=== PATIENT | male | born 1965 | race Caucasian/White ===

== ENCOUNTER 2023-08-06 09:15 | Outpatient (AMB) | payer OTHER, SELFPAY ==
--- NOTE | 2023-08-06 09:19 | A.OFFVIS_ITS ---
Vital Signs 08/06/23 09:21 Height 5 ft 11 in Weight 181 lb 2 oz BMI 25.3 BP 120/74 Blood Pressure Location Lt brachial Position Sitting Pulse 60 Pulse Source Pulse Oximeter Pulse Oximetry (%) 98 Oxygen Delivery Method Room Air Intake Visit Reasons: Dyspnea Allergies No Known Allergies Allergy (Verified 08/06/23 09:24) HPI HPI Dyspnea: Details: Ede is pleasant 58 year old male, never smoker, with underlying asthma. He was referred by PCP for pulmonary evaluation for dyspnea on moderate exertion, specifically stairs. He reports noticeable dyspnea which became more noticeable last year. He denies any cough, wheezing or chest tigthtness. He reports asthma since childhood, never requiring intubations. In the past he has been on multiple inhalers, usually requiring seasonally, with spring and allergies. He is not currently on any respiratory medications. He does take flonase and sanjuana atidine with moderate effect. Prior PFT from 2020 reportedly unremarkable. Prior CXR from 12/04 unremarkable. Of note, he did have a cardiology work up with echo, stress test and EKG holter which was reportedly unremarkable. He denies any occupational exposures. He denies any pertinent family history. [facility] Social History (Updated 08/06/23 @ 09:27 by Melody Rowland [facility]) Patient Tobacco Use Status: Never used Tobacco Review of Systems Const Denies chills, Denies excessive sweating, Denies fever(s), Denies headache(s) and Denies night sweats Eyes Denies dry eyes, Denies irritation and Denies itchy eyes ENT Reports Normal hearing present, Denies headache(s), Denies nasal congestion, Denies nasal discharge and Denies sore throat Card Denies chest pain, Denies chest pain at rest, Denies chest pain with activity, Denies claudication, Denies leg edema, Denies orthopnea and Denies paroxysmal nocturnal dyspnea Resp Denies chest congestion, Denies cough, Denies excessive phlegm production, Denies pain on inspiration, Denies pain with cough, Denies stridor and Denies wheezing Musc Denies myalgias Neuro Reports Normal hearing present and Denies headache(s) Endo Denies excessive sweating Jose De Jesus/Lymph Denies lymphadenopathy Aller/Immun Denies itchy eyes, Denies seasonal rhinorrhea and Denies wheezing Physical Exam Vital Signs: Last Vital Signs Pulse 60 08/06/23 09:21 BP 120/74 08/06/23 09:21 Pulse Ox 98 08/06/23 09:21 Oxygen Delivery Method Room Air 08/06/23 09:21 BMI result Body Mass Index 25.3 Const General: cooperative, healthy appearing, comfortable, no acute distress, well developed and alert Orientation/consciousness: patient oriented x3 Limitations: no limitations HEENT Head: Yes normal to inspection, Yes normocephalic and Yes atraumatic Ears: hearing grossly normal bilaterally and external ears normal Eyes General: appearance normal, both eyes and all related structures Eyelids: Yes eyelids normal Sclerae: sclerae normal EOM: EOMs intact bilaterally Neck Neck: Yes normal visual inspection and Yes no lymphadenopathy Lymphatic: no lymphadenopathy noted Chest Chest palpation & inspection: normal inspection of the chest Resp Effort & Inspection: normal respiratory effort, able to speak in complete sentences, no audible wheezes, no cough, no stridor, not tachypneic, no tripod positioning and no use of accessory muscles Auscultation: clear to auscultation bilaterally Cardio Jugular venous distension: no JVD Rate: regular rate Rhythm: regular rhythm Skin Other: warm, dry General skin exam: no rashes or lesions noted Neuro General: patient oriented x3 Cranial nerves: Yes Normal hearing present Cognition (Neuro): normal cognition Gait exam (Neuro): Normal gait present Extrem General: Yes normal to inspection, Yes capillary refill normal, Yes no clubbing, cyanosis or edema and Yes no pedal edema Psych Appearance: grossly normal and well kempt Speech and movement: Normal speech and movement present and Clear speech present Affect: normal affect Attitude: cooperative Thought process: Normal thought process present Thought content: Normal thought content present Insight: Good insight present (Psych) Judgement: Good judgement present (Psych) Assessment & Plan Assessment & Plan (1) Asthma: Code(s): J45.909 - Unspecified asthma, uncomplicated Category: Medical (2) Dyspnea on exertion: Code(s): R06.09 - Other forms of dyspnea Category: Medical (3) Environmental allergies: Code(s): Z91.09 - Other allergy status, other than to drugs and biological substances Category: Medical Plan Ede symptoms are likely related to underlying asthma with allergic component. Will send for PFT to thoroughly evaluate. Patient reports prior allergy testing, with multiple environmental allergies. Will trial ICS, as patient reports tremors with prior LABA use. Advised to continue current allergy medication regimen. All questions were answered and patient is in agreement of plan. Will follow up to review response to inhaler and results of PFT. Orders: Orders PFT pulmonary function test Today J45.909 - Unspecified asthma, uncomplicated Medications: New fluticasone furoate 100 mcg/actuation (Arnuity Ellipta) 1 inh inhalation DAILY 30 ea 3RF Coding Level of Care Code New Pt Level 4 (97999) Diagnoses Asthma J45.909 Dyspnea on exertion R06.09 Environmental allergies Z91.09
[2023-08-06 09:21] VITALS: BP 120/74; PULSE 60; O2SAT 98; BMI 25.3
== END 2023-08-06 10:01 | disposition home or self-care (01) ==
PROVIDERS: PCP Internal Medicine; Referring Provider Internal Medicine; Visit Provider Nurse Practitioner Family
DX: J45.909 Unspecified asthma, uncomplicated (principal); R06.09 Other forms of dyspnea; Z91.09 Other allergy status, other than to drugs and biological substances
CPT/HCPCS: 99204

== ENCOUNTER → 2023-08-06 09:15 | Outpatient (BNVA) | payer OTHER, SELFPAY | PROVIDERS: Visit Provider Nurse Practitioner Family ==

== ENCOUNTER 2024-01-27 09:08 | Outpatient (AMB) | payer OTHER, SELFPAY ==
--- NOTE | 2024-01-27 09:12 | A.OFFVIS_ITS ---
Vital Signs 01/27/24 09:13 Height 5 ft 11 in Weight 189 lb 8 oz BMI 26.4 BP 138/86 Blood Pressure Location Lt brachial Position Sitting Pulse 48 L Pulse Source Pulse Oximeter Pulse Oximetry (%) 99 Oxygen Delivery Method Room Air Intake Visit Reasons: Asthma/PFT Follow Up Allergies No Known Allergies Allergy (Verified 01/27/24 09:17) HPI HPI Asthma/PFT Follow Up: Details: Ede is pleasant 59 year old male, never smoker, with underlying asthma since childhood. At the last visit, he reported more noticeable dyspnea over the last year. An ICS inhaler was sent in however patient unable to obtain due to insurance denial then issues at the pharmacy. At this time, he reports symptoms are fairly controlled using albuterol PRN and requesting a refill. He was also sent for PFT however this has been rescheduled on 3 occasions, awaiting PFT to be scheduled. He prefers this be performed at [facility]. He denies any visits to urgent care or hospitalizations since the last visit. [facility] Social History (Reviewed 01/27/24 @ 09:16 by Melody Rowland [facility]) Patient Tobacco Use Status: Never used Tobacco Review of Systems Const Denies chills, Denies excessive sweating, Denies fever(s), Denies headache(s) and Denies night sweats Eyes Denies dry eyes, Denies irritation and Denies itchy eyes ENT Reports Normal hearing present, Denies headache(s), Denies nasal congestion, Denies nasal discharge and Denies sore throat Card Denies chest pain, Denies chest pain at rest, Denies chest pain with activity, Denies claudication, Denies leg edema, Denies orthopnea and Denies paroxysmal nocturnal dyspnea Resp Denies chest congestion, Denies cough, Denies excessive phlegm production, Denies pain on inspiration, Denies pain with cough, Denies stridor and Denies wheezing Musc Denies myalgias Neuro Reports Normal hearing present and Denies headache(s) Endo Denies excessive sweating Jose De Jesus/Lymph Denies lymphadenopathy Aller/Immun Denies itchy eyes, Denies seasonal rhinorrhea and Denies wheezing Physical Exam Vital Signs: Last Vital Signs Pulse 48 L 01/27/24 09:13 BP 138/86 01/27/24 09:13 Pulse Ox 99 01/27/24 09:13 Oxygen Delivery Method Room Air 01/27/24 09:13 BMI result Body Mass Index 26.4 Const General: cooperative, healthy appearing, comfortable, no acute distress, well developed and alert Orientation/consciousness: patient oriented x3 Limitations: no limitations HEENT Head: Yes normal to inspection, Yes normocephalic and Yes atraumatic Ears: hearing grossly normal bilaterally and external ears normal Eyes General: appearance normal, both eyes and all related structures Eyelids: Yes eyelids normal Sclerae: sclerae normal EOM: EOMs intact bilaterally Neck Neck: Yes normal visual inspection and Yes no lymphadenopathy Lymphatic: no lymphadenopathy noted Chest Chest palpation & inspection: normal inspection of the chest Resp Effort & Inspection: normal respiratory effort, able to speak in complete sentences, no audible wheezes, no cough, no stridor, not tachypneic, no tripod positioning and no use of accessory muscles Auscultation: clear to auscultation bilaterally Cardio Jugular venous distension: no JVD Rate: regular rate Rhythm: regular rhythm Skin Other: warm, dry General skin exam: no rashes or lesions noted Neuro General: patient oriented x3 Cranial nerves: Yes Normal hearing present Cognition (Neuro): normal cognition Gait exam (Neuro): Normal gait present Extrem General: Yes normal to inspection, Yes capillary refill normal, Yes no clubbing, cyanosis or edema and Yes no pedal edema Psych Appearance: grossly normal and well kempt Speech and movement: Normal speech and movement present and Clear speech present Affect: normal affect Attitude: cooperative Thought process: Normal thought process present Thought content: Normal thought content present Insight: Good insight present (Psych) Judgement: Good judgement present (Psych) Assessment & Plan Assessment & Plan (1) Asthma: Code(s): J45.909 - Unspecified asthma, uncomplicated Category: Medical (2) Dyspnea on exertion: Code(s): R06.09 - Other forms of dyspnea Category: Medical (3) Environmental allergies: Code(s): Z91.09 - Other allergy status, other than to drugs and biological substances Category: Medical Plan At this time, Ede would like to hold off on a daily inhaler and prefers to use albuterol PRN. He is aware if he is using frequently to call office to trial an ICS. He is awaiting PFT to be scheduled, he prefers this order be sent to [facility], will send. All questions were answered and patient is in agreement of plan. Will follow up to review results of PFT via telephone unless symptomatic and will be seen in office. Orders: Orders PFT pulmonary function test Today J45.909 - Unspecified asthma, uncomplicated Medications: New albuterol sulfate 90 mcg/actuation 2 puffs inhalation Q4-6H PRN 1 ea 3RF shortness of breath or wheezing Coding Level of Care Code Est Pt Level 3 (74161) Diagnoses Asthma J45.909 Dyspnea on exertion R06.09 Environmental allergies Z91.09
[2024-01-27 09:13] VITALS: BP 138/86; PULSE 48; O2SAT 99; BMI 26.4
== END 2024-01-27 09:34 | disposition home or self-care (01) ==
PROVIDERS: PCP Internal Medicine; Visit Provider Nurse Practitioner Family
DX: J45.909 Unspecified asthma, uncomplicated (principal); R06.09 Other forms of dyspnea; Z91.09 Other allergy status, other than to drugs and biological substances
CPT/HCPCS: 99213

== ENCOUNTER → 2024-01-27 09:08 | Outpatient (BNVA) | payer OTHER, SELFPAY | PROVIDERS: PCP Internal Medicine; Visit Provider Nurse Practitioner Family ==

== ENCOUNTER 2024-03-17 12:02 | Outpatient (AMB) | payer SELFPAY ==
--- NOTE | 2024-03-17 12:01 | MHC.OFFVIS ---
Intake Visit Reasons: asthma Allergies No Known Allergies Allergy (Verified 01/27/24 09:17) HPI HPI asthma: Details: Ede is pleasant 59 year old male, never smoker, with underlying asthma since childhood. At the last visit, he reported more noticeable dyspnea over the last year. An ICS inhaler was sent in however patient unable to obtain due to insurance denial then issues at the pharmacy. At this time, he reports symptoms are fairly controlled using albuterol PRN and requesting a refill. He denies any visits to urgent care or hospitalizations since the last visit. Today's visit was conducted via telephone to review PFT results. [facility] Social History Patient Tobacco Use Status: Never used Tobacco Review of Systems Const All systems reviewed & are unremarkable except as noted in HPI and below Physical Exam Const General: cooperative and no acute distress Orientation/consciousness: patient oriented x3 Resp Effort & Inspection: normal respiratory effort, able to speak in complete sentences and no audible wheezes Neuro General: patient oriented x3 Psych Mental Status: mental status grossly normal Speech and movement: Clear speech present Attitude: cooperative Thought process: Normal thought process present Thought content: Normal thought content present Insight: Good insight present (Psych) Judgement: Good judgement present (Psych) Telehealth Telehealth Telehealth Platform: Telephone Location of provider rendering services: practice address Location of patient: address on file Patient Identification confirmed using: Name, : Yes Telehealth method: voice only Patient verbally consented to treatment: Yes Patient verbally consented to billing insurance company: Yes Patient informed of any privacy concerns related to visit: Yes Assessment & Plan Assessment & Plan (1) Asthma: Code(s): J45.909 - Unspecified asthma, uncomplicated Category: Medical Plan Reviewed PFT which revealed mild obstructive defect with no significant change with bronchodilation consistent with asthma COPD overlap. At this time, Ede would like to hold off on a daily inhaler and prefers to use albuterol PRN. He is aware if he is using frequently to call office to trial an ICS. All questions were answered and patient is in agreement of plan. Will follow up in 6-9 months or sooner if needed. Scribe Plan - Not visible on output: I spent 10 minutes speaking with the patient on the phone plus an additional 10 minutes reviewing and updating records for a total of 20 minutes Coding Level of Care Code Tele Est Pt Level 4 (68095) Diagnoses Asthma J45.909
== END 2024-03-17 12:59 | disposition home or self-care (01) ==
LOC: HO.HPSW 12:03
PROVIDERS: PCP Internal Medicine; Visit Provider Nurse Practitioner Family
DX: J45.909 Unspecified asthma, uncomplicated (principal)
CPT/HCPCS: 99441

== ENCOUNTER → 2024-03-17 12:02 | Outpatient (BNVA) | payer OTHER, SELFPAY | PROVIDERS: PCP Internal Medicine; Visit Provider Nurse Practitioner Family ==